=== PATIENT | female | born 1980 | race Two or more races ===

== ENCOUNTER 2019-10-09 15:11 | Outpatient (CLI) | payer OTHER | END 2019-10-09 15:13 | disposition home or self-care (01) | LOC: RAD 15:11 | DX: S70.01XA Contusion of right hip, initial encounter (principal); M51.87 Other intervertebral disc disorders, lumbosacral region ==

== ENCOUNTER 2020-06-17 10:03 | Outpatient (CLI) | payer OTHER | END 2020-06-17 10:10 | disposition home or self-care (01) | LOC: MAMO-SONO 10:03 | PROVIDERS: ATTEND Obstetrics & Gynecology | DX: Z12.31 Encounter for screening mammogram for malignant neoplasm of breast (principal); N60.11 Diffuse cystic mastopathy of right breast; N60.12 Diffuse cystic mastopathy of left breast ==

== ENCOUNTER 2020-08-19 15:30 | Outpatient (CLI) | payer OTHER | END 2020-08-19 15:39 | disposition home or self-care (01) | LOC: RAD 15:30 | PROVIDERS: ATTEND Physical Medicine & Rehabilitation | DX: M54.5 Low back pain (principal) ==

== ENCOUNTER 2020-08-26 11:35 | Outpatient (CLI) | payer OTHER | END 2020-08-26 11:44 | disposition home or self-care (01) | LOC: MRI 11:35 | PROVIDERS: ATTEND Physical Medicine & Rehabilitation | DX: M54.2 Cervicalgia (principal); M54.12 Radiculopathy, cervical region | CPT/HCPCS: 72141 ==

== ENCOUNTER 2022-12-07 15:53 | Outpatient (CLI) | payer OTHER | END 2022-12-07 15:58 | disposition home or self-care (01) | LOC: RAD 15:53 | DX: M54.50 Low back pain, unspecified (principal) ==

== ENCOUNTER 2023-01-28 07:19 | Outpatient (CLI) | payer OTHER | END 2023-01-28 07:27 | disposition home or self-care (01) | LOC: SONOGRAMA 07:19 | PROVIDERS: ATTEND Internal Medicine Gastroenterology | DX: K59.09 Other constipation (principal); K62.5 Hemorrhage of anus and rectum; R14.0 Abdominal distension (gaseous); R11.0 Nausea; R12 Heartburn ==

== ENCOUNTER 2023-09-13 11:45 | Emergency (ER) | payer OTHER ==
[~2023-09-13] VITALS: Ht 165.1 cm; Wt 65.8 kg
[2023-09-13] MEDS ORDERED: ZYRTEC10 M3 PO (14:49)
[2023-09-13] MEDS ORDERED: ZITHROMAX TRI-500 MG PO (14:49)
[2023-09-13] MEDS ORDERED: FLONASE ALLERG9.9 ML NASAL (14:49)
== END 2023-09-13 15:03 | disposition home or self-care (01) ==
LOC: ER 11:45
DX: B34.9 Viral infection, unspecified (principal); Z20.822 Contact with and (suspected) exposure to COVID-19
CPT/HCPCS: 96372; 99284; J1885